=== PATIENT | female | born 1995 | race African-American/Black ===

== ENCOUNTER 2016-11-09 11:30 | Inpatient (IN) | payer MEDICAID ==
[2016-11-09] MEDS ORDERED: OXYTOCIN 10 UNIT/ML VIAL ONE (11:44)
[2016-11-09] MEDS ORDERED: PROMETHAZINE HCL 25 MG TABLET PO PRN ×2 (12:20)
[2016-11-09] MEDS ORDERED: ZOLPIDEM TARTRATE 5 MG TABLET PO PRN ×2 (12:20)
[2016-11-09] MEDS ORDERED: ACETAMINOPHEN 650 MG SUPP.RECT PR PRN ×2 (12:20)
[2016-11-09] MEDS ORDERED: PSEUDOEPHEDRINE HCL 30 MG TABLET PO PRN ×2 (12:20)
[2016-11-09] MEDS ORDERED: MEASLES,MUMPS&RUBELLA VACC/PF 0.5 ML VIAL SUBCUT PRN ×2 (12:20)
[2016-11-09] MEDS ORDERED: ACETAMINOPHEN WITH CODEINE #3 TABLET PO PRN ×4 (12:20)
[2016-11-09] MEDS ORDERED: PROMETHAZINE HCL INJ 25 MG/1 ML VIAL IV PRN ×2 (12:20)
[2016-11-09] MEDS ORDERED: DIPHENHYDRAMINE HCL 25 MG CAPSULE PO PRN ×2 (12:20)
[2016-11-09] MEDS ORDERED: DIPH/PERTUSS(ACELL)/TETANUS VAC/PF 0.5 ML SYR (>=10YO) IM PRN ×2 (12:20)
[2016-11-09] MEDS ORDERED: OXYTOCIN/NORMAL SALINE 20 UNIT/1,000 ML RTUINJ IV PRN (12:20)
[2016-11-09] MEDS ORDERED: BENZOCAINE/MENTHOL AEROSOL SPRAY 56 ML TOP PRN ×2 (12:20)
[2016-11-09] MEDS ORDERED: PROMETHAZINE HCL 25 MG SUPP.RECT PR PRN ×2 (12:20)
[2016-11-09] MEDS ORDERED: MAGNESIUM HYDROXIDE SUSP 30 ML UDCUP PO PRN ×2 (12:20)
[2016-11-09] MEDS ORDERED: DIBUCAINE 1% OINTMENT 28 GM TP PRN ×2 (12:20)
[2016-11-09] MEDS ORDERED: OXYTOCIN/NORMAL SALINE 1,000 ML IV PRN (12:20)
[2016-11-09] MEDS ORDERED: NA PHOS,M-B/NA PHOS,DI-BA (ADULT) 133 ML ENEMA PR PRN ×2 (12:20)
[2016-11-09] MEDS ORDERED: GLYCERIN/WITCH HAZEL LEAF 1 EACH MED..PAD TP PRN ×2 (12:20)
--- NOTE | 2016-11-09 13:11 | Admission Physical ---
Datetime Report Generated by CPN: 11/09/2016 13:11 CURRENT ADMISSION Chief Complaint: Other Chief Complaint Other: Delivered vaginally at home at 1019 this am Indication for Induction: Not Applicable Admit Impression- Other: S/P at home this am, placenta undelivered Admit Plan: Admit to Unit ALLERGIES Medication Allergies: No Medication Allergies: No Known Allergies (05/24/2013) Latex: No Latex Allergies OBSTETRICAL HISTORY EDC: 10/29/2016 00:00 : 2 Para: 2 Gestational Diabetes: No Rh Sensitization: No Incompetent Cervix: No LASHELL: No Infertility: No ART Treatment: No Uterine Anomaly: No IUGR: No Hx Previous C/S: No Macrosomia: No Hx Loss/Stillborn: No PIH: No Hx : No Placenta Previa/Abruption: No Depression/PP Depression: No PTL/PROM: No Post Hemorrhage: No Obstetrical History Comments: G1 G2 current SEE RECORDS Alcohol: No Marijuana : No Cocaine: No Other Illicit Drugs: Yes Cigarettes: Current Everyday Smoker. 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 Surgery: No Heart Disease: No Hosp/Surgery: No Autoimmune Disorder: No Anesthetic Complications: No Kidney Disease: No Abnormal Pap Smear: No Neuro/Epilepsy: No Psychiatric Disorders: Yes Other Medical Diseases: No Hepatitis/Liver Disease: No Significant Family History: No Varicosities/Phlebitis: No Trauma/Violence : No Thyroid Dysfunction: No Medical History Comments: Subutex INFECTIOUS HISTORY Gonorrhea: No Genital Herpes: No Chlamydia: No Tuberculosis: No Syphilis: No Hepatitis: No HIV/AIDS Exposure: No Rash or Viral Illness: No HPV: No PHYSICAL EXAM General: Normal HEENT: Normal Neurologic: Normal Thyroid: Deferred Heart: Normal Lungs: Normal Breast: Deferred Back: Normal Abdomen: Normal Genitourinary Exam: Normal Extremities: Normal DTRs: Normal Physical Exam Comments: S/P this am Vital Signs: Reviewed; Within Normal Limits FETUS A EGA: 41.4 Admit Comment: anni 41w 4d 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
[2016-11-09 13:26] LABS: PROTHROMBIN TIME 12.5 SEC (11.4-15.4)
--- NOTE | 2016-11-09 13:54 | Delivery Summary ---
Del Sum A-C Datetime Report Generated by CPN: 11/09/2016 13:54 DELIVERY PERSONNEL DELIVERY PERSONNEL: [id number] MATERNAL INFORMATION Other Maternal Complications: Delivered at home Provider Comments: Patient brought in by [facility] after she delivered a viable baby at home at 1019. EMS reportedly arrived after delivery of baby. Cord extending from vagina with a cord clamp attached. With gentle traction and patient pushing, placenta, membranes and cord delivered, Brewer presentation. FF at U-3 with fundal massage. Perineum inspected-intact. Placenta to lab. Patient stable. LABOR SUMMARY EDC: 10/29/2016 00:00 LABOR INFORMATION Group B Beta Strep: Negative STAGES OF LABOR Stage 3 hr: 1 Stage 3 min: 22 VAGINAL DELIVERY Episiotomy: None Laceration Extension: N/A Laceration Type: None Laceration Repair: Not Applicable BABY A INFORMATION Infant Delivery Date/Time: 11/09/2016 10:19 Method of Delivery: Vaginal Born in Route : Yes : N/A Forceps: N/A Vacuum Extraction: N/A Shoulder Dystocia : No PLACENTA INFORMATION BABY A Placenta Delivery Time : 11/09/2016 11:41 Placenta Method of Delivery: Expressed Placenta Status: Delivered SCORES BABY A Heart Rate 1 min: >100 bpm Resp Effort 1 min: Slow, Irregular Reflex Irritability 1 min: Cough or Sneeze or Pulls Away Muscle Tone 1 min: Active Motion Color 1 min: Body [place], Extremities Blue Resuscitation Effort 1 min: N/A SCORE 1 MIN: 8 Heart Rate 5 min: >100 bpm Resp Effort 5 min: Good Cry Reflex Irritability 5 min: Cough or Sneeze or Pulls Away Muscle Tone 5 min: Active Motion Color 5 min: Body [place], Extremities Blue Resuscitation Effort 5 min: N/A SCORE 5 MIN: 9 INFANT INFORMATION BABY A Outcome : Liveborn Condition : Stable Infant Sex: Female IDENTIFICATION BABY A Verification Date/Time: 11/09/2016 12:13 ID Band Number: [id number] Mother's Name Verified: Yes RN Verifying Infant: Isabella Mendosa RNC/C Balko RN CORD INFORMATION BABY A No. Cord Vessels: 3 SIGNATURES Assignment: Wendy Willams MD Signature: with User ID: [email or web address] : with User ID: [email or web address] : I personally evaluated and examined the patient in conjunction with the MLP and agree with the assessment, treatment plan and disposition.
[2016-11-09 13:57] LABS: APPEARANCE,URINE CLEAR; BILIRUBIN,URINE NEGATIVE (NEGATIVE); GLUCOSE, URINE NEGATIVE (NEGATIVE); KETONES,URINE NEGATIVE (NEGATIVE); LEUKOCYTE ESTERASE,URINE NEGATIVE (NEGATIVE); NITRITE,URINE NEGATIVE (NEGATIVE); PROTEIN,URINE 30 mg/dL (NEGATIVE); URINE SPECIFIC GRAVITY 1.018; UROBILINOGEN,URINE NEGATIVE mg/dL (<2.0)
[2016-11-09] MEDS ORDERED: IBUPROFEN 800 MG TABLET PO SCH (14:00)
[2016-11-09] MEDS: IBUPROFEN 800 MG TABLET PO SCH ×2 (14:09→21:01)
[2016-11-09 14:16] LABS: URINE BARBITURATES SCREEN NEGATIVE; URINE METHADONE SCREEN NEGATIVE; URINE OPIATES LOW NEGATIVE; URINE PHENCYCLIDINE SCREEN NEGATIVE
[2016-11-09] MEDS ORDERED: FERROUS SULFATE 325 MG TABLET PO SCH (18:00)
[2016-11-09] MEDS ORDERED: DOCUSATE SODIUM 100 MG CAPSULE PO SCH (18:00)
[2016-11-09] MEDS: DOCUSATE SODIUM 100 MG CAPSULE PO SCH (18:13)
[2016-11-09] MEDS: FERROUS SULFATE 325 MG TABLET PO SCH (18:14)
[2016-11-09] MEDS: BUPRENORPHINE 8MG TAB PO SCH (20:57)
[2016-11-09] MEDS: FAMOTIDINE 20 MG TABLET PO SCH (21:00)
[2016-11-09] MEDS ORDERED: FAMOTIDINE 20 MG TABLET PO SCH (22:00)
[2016-11-10] MEDS: BUPRENORPHINE 8MG TAB PO SCH ×3 (05:13→21:57)
[2016-11-10] MEDS: IBUPROFEN 800 MG TABLET PO SCH ×3 (05:14→21:57)
[2016-11-10 07:09] LABS: HEMATOCRIT 32.2 % (36.0-47.0); HEMOGLOBIN 10.8 g/dL (12.0-15.5); HGB HCT DIFFERENCE 0.2; MEAN CORPUSCULAR HEMOGLOBIN 30.2 pg (27.0-33.4); MEAN CORPUSCULAR HGB CONC 33.5 g/dL (32.0-36.0); MEAN CORPUSCULAR VOLUME 90 fl (80-97); RED BLOOD COUNT 3.56 10^6/uL (3.72-5.28); RED CELL DISTRIBUTION WIDTH 12.5 % (11.5-14.0)
[2016-11-10] MEDS ORDERED: PRENATAL VITAMIN W-O CA NO5/FE FUMARATE/FA CAPSULE PO SCH (10:00)
[2016-11-10] MEDS ORDERED: SENNOSIDES/DOCUSATE 8.6-50 MG 1 EACH TABLET PO SCH (10:00)
[2016-11-10] MEDS: DOCUSATE SODIUM 100 MG CAPSULE PO SCH ×2 (10:18→17:25)
[2016-11-10] MEDS: FAMOTIDINE 20 MG TABLET PO SCH ×2 (10:18→21:57)
[2016-11-10] MEDS: PRENATAL VITAMIN W-O CA NO5/FE FUMARATE/FA CAPSULE PO SCH (10:18)
[2016-11-10] MEDS: SENNOSIDES/DOCUSATE 8.6-50 MG 1 EACH TABLET PO SCH (10:19)
[2016-11-10] MEDS: FERROUS SULFATE 325 MG TABLET PO SCH ×2 (10:20→17:25)
--- NOTE | 2016-11-10 11:13 | PDOC PROGRESS REPORT ---
Subjective-OB Subjective: Post Delivery Day: 21 year old. Denies any needs at this time. Taking Subutex 8mg tid. Physical Exam (OB) Vital Signs: Temp Pulse Resp BP Pulse Ox 97.7 F 62 18 117/61 100 11/10/16 07:35 11/10/16 07:35 11/10/16 07:35 11/10/16 07:35 11/10/16 07:35 Intake & Output 11/09/16 11/10/16 11/11/16 06:59 06:59 06:59 Intake Total 120 Balance 120 Weight 85.2 kg - PIH/Pre-Eclampsia Clonus: Negative Headache: Absent Epigastric Pain: No Visual Changes: No - Lochia Lochia Amount: Small 10-25 ml Lochia Color: Rubra/Red - Abdomen Description: Soft, Round Hernia Present: No Bowel Sounds: Normoactive Flatus Presence: Present Stool: No Fundal Description: Firm, Midline Fundal Height: u/u - u/2 Objective-Diagnostic Laboratory: 11/10/16 06:37 11/09/16 11/09/16 11/10/16 12:54 13:05 06:37 WBC 12.0 H RBC 3.56 L Hgb 10.8 L Hct 32.2 L MCV 90 MCH 30.2 MCHC 33.5 RDW 12.5 Plt Count 143 L Urine Color RED Urine Appearance CLEAR Urine pH 7.0 Ur Specific [place] 1.018 Urine Protein 30 H Urine Glucose (UA) NEGATIVE Urine Ketones NEGATIVE Urine Blood LARGE H Urine Nitrite NEGATIVE Ur Leukocyte Esterase NEGATIVE Blood Type O POSITIVE Antibody Screen NEGATIVE
[2016-11-11] MEDS: IBUPROFEN 800 MG TABLET PO SCH (05:28)
[2016-11-11] MEDS: BUPRENORPHINE 8MG TAB PO SCH (05:28)
[2016-11-11 08:05] VITALS: BP 107/64
--- NOTE | 2016-11-11 09:07 | PDOC DISCHARGE SUMMARY ---
General - Admit/Disc Date/PCP Admission Date/Primary Care Provider: 11/09/16 11:30 NO LOCALMD Discharge Date: 11/11/16 - Discharge Diagnosis (1) Insufficient antepartum care Is this a current diagnosis for this admission?: Yes (2) Late onset prenantal care Is this a current diagnosis for this admission?: Yes (3) Opiod addiction Is this a current diagnosis for this admission?: Yes (4) Is this a current diagnosis for this admission?: Yes (5) Delivery normal Is this a current diagnosis for this admission?: Yes - Additional Information Home Medications: Pnv with Ca,No.72/Iron/FA [ Plus Tablet] 1 tab PO DAILY 05/24/13 History of Present Illness History of Present Illness: OMID MARK is a 21 year old female Physical Exam - Physical Exam Vital Signs: Temp Pulse Resp BP Pulse Ox 97.7 F 74 16 107/64 98 11/11/16 08:53 11/11/16 08:53 11/11/16 08:53 11/11/16 07:57 11/11/16 08:53 Intake & Output 11/10/16 11/11/16 11/12/16 06:59 06:59 06:59 Intake Total 120 1530 Balance 120 1530 Weight 85.2 kg General appearance: PRESENT: no acute distress, cooperative - Obstetrical Exam Fundal Height: u/u - u/2 Tender: No Result Laboratory Results: 11/10/16 06:37 Plan Discharge Plan: home with check in 4 wk with [facility]. Time Spent: Less than 30 Minutes
[2016-11-11] MEDS: DOCUSATE SODIUM 100 MG CAPSULE PO SCH (10:27)
[2016-11-11] MEDS: FAMOTIDINE 20 MG TABLET PO SCH (10:27)
[2016-11-11] MEDS: FERROUS SULFATE 325 MG TABLET PO SCH (10:27)
[2016-11-11] MEDS: SENNOSIDES/DOCUSATE 8.6-50 MG 1 EACH TABLET PO SCH (10:28)
[2016-11-11] MEDS: PRENATAL VITAMIN W-O CA NO5/FE FUMARATE/FA CAPSULE PO SCH (10:30)
== END 2016-11-11 13:07 | disposition home or self-care (01) | DRG 769 ==
LOC: EEVIPCON 11:30 → LR 11:30 → 2S 13:10 → 2N 20:08
PROVIDERS: ADMIT Obstetrics & Gynecology; ATTEND Obstetrics & Gynecology
PROC: 10D17ZZ Extraction of Products of Conception, Retained, Via Natural or Artificial Opening (ICD-10-PCS; principal; 2016-11-09)
DX: O73.0 Retained placenta without hemorrhage (principal); O99.324 Drug use complicating childbirth; O99.334 Smoking (tobacco) complicating childbirth; F17.210 Nicotine dependence, cigarettes, uncomplicated; Z3A.41 41 weeks gestation of pregnancy
CPT/HCPCS: 36415; 80307; 81005; 85027; 85610; 86592; 86850; 86900; 86901; 88307; J2590; J3490

== ENCOUNTER 2018-06-26 20:33 | Emergency (ER) | payer MEDICAID ==
--- NOTE | 2018-06-27 00:13 | ER Document Report ---
HPI - HPI Time Seen by Provider: 06/26/18 23:55 Pain Level: 1 Notes: Patient is a 22-year-old female presents to the emergency department today with a chief complaint of right ear pain for 2 days. Patient has had nasal congestion and runny nose. Denies fever or sore throat. She reports that she is eating and drinking normally. States that the ear pain feels like there is something "Stuck in it." Nothing makes the pain worse or better. Denies nausea vomiting or diarrhea. Denies cough. - REPRODUCTIVE Reproductive: DENIES: : Past Medical History - General Information source: Patient - Social History Smoking Status: Never Smoker Cigarette use (# per day): No Chew tobacco use (# tins/day): No Frequency of alcohol use: None Drug Abuse: None Lives with: Family Family History: None Pulmonary Medical History: Denies: Hx Asthma - seasonal allergies Past Surgical History: Reports: Hx Abdominal Surgery - umbilical hernia, Hx Orthopedic Surgery - 7, Hx Umbilical Hernia - Immunizations Immunizations up to date: Yes Hx Diphtheria, Pertussis, Tetanus Vaccination: No Vertical Provider Document - CONSTITUTIONAL Agree With Documented VS: Yes Exam Limitations: No Limitations General Appearance: WD/WN, No Apparent Distress - INFECTION CONTROL TRAVEL OUTSIDE OF THE [place] IN LAST 30 DAYS: No - HEENT HEENT: Atraumatic, Normocephalic, PERRLA, Pharyngeal Erythema, Tympanic Membrane Red - Left ear exam normal. Right ear: mastoid normal, TM red, no drainage. - NECK Neck: Normal Inspection - RESPIRATORY Respiratory: Breath Sounds Normal, No Respiratory Distress - CARDIOVASCULAR Cardiovascular: Regular Rate, Regular Rhythm - GI/ABDOMEN Gastrointestinal: Abdomen Soft, Abdomen Non-Tender - NEURO Level of Consciousness: Awake, Alert, Appropriate - DERM Integumentary: Warm, Dry Course - Vital Signs Vital signs: Temp Pulse Resp BP Pulse Ox 98.2 F 85 16 142/76 H 99 06/26/18 21:01 06/26/18 21:01 06/26/18 21:01 06/26/18 21:01 06/26/18 21:01 Discharge - Discharge Clinical Impression: Otitis media Qualifiers: Otitis media type: suppurative Chronicity: acute Laterality: right Recurrence: not specified as recurrent Spontaneous tympanic membrane rupture: without spontaneous rupture Qualified Code(s): H66.001 - Acute suppurative otitis media without spontaneous rupture of ear drum, right ear Condition: Stable Disposition: HOME, SELF-CARE Additional Instructions: You have been diagnosed with an ear infection, which is called otitis media on the right side. You are being prescribed Flonase for your nasal congestion as well as amoxicillin which is an antibiotic please take your antibiotic until it is completely finished. Please return to the emergency department if your ear pain is getting worse, you develop a high fever, severe headache, stiff neck, confusion, dizziness or any other concerning signs or symptoms. Otitis Media You have a middle ear infection (otitis media). This is usually a complication of a cold or sore throat. The middle ear cavity becomes filled with infection. Pressure and stretching of the ear drum cause pain. Antibiotics are required. A 7 day course is usually prescribed. A decongestant may be recommended if you have a "runny nose." You may need anesthetic drops or other pain medication. A follow-up exam may be recommended to make sure the infection has completely cleared. If the ear begins to drain, it means the ear drum has ruptured. This will usually heal spontaneously. However, it means you should keep the ear dry until re-examined by a doctor. Call the physician or return for examination at once if there is severe headache, stiff neck, confusion, increasing fever, or dizziness. You should improve significantly within two days. If you're not better, call the doctor. Prescriptions: Amoxicillin 2 tab PO TID 7 Days #42 tab Fluticasone Propionate [Flonase Nasal Rosenberg 50 Mcg/Rosenberg 16 gm] 2 sprays NASL Q12 #1 inhaler Referrals: LOCALMD,NO [NO LOCAL MD] - Follow up as needed
[2018-06-27 00:32] VITALS: BP 133/64
== END 2018-06-27 00:32 | disposition home or self-care (01) ==
LOC: ER 20:33
DX: H66.001 Acute suppurative otitis media without spontaneous rupture of ear drum, right ear (principal); H92.01 Otalgia, right ear; R09.89 Other specified symptoms and signs involving the circulatory and respiratory systems
CPT/HCPCS: 99282

== ENCOUNTER 2019-03-02 07:35 | Emergency (ER) | payer MEDICAID ==
[2019-03-02 09:31] LABS: A TYPE INFLUENZA AG NEGATIVE (NEGATIVE)
[2019-03-02 09:32] LABS: B INFLUENZA AG NEGATIVE (NEGATIVE)
--- NOTE | 2019-03-02 09:38 | ER Document Report ---
HPI - HPI Patient complains to provider of: cold symptoms Time Seen by Provider: 03/02/19 09:04 Onset: Last week Onset/Duration: Persistent Quality of pain: Achy Pain Level: 2 Context: 23-year-old female presents emergency department with complaints of flulike symptoms. Reports her roommate was diagnosed with flu symptoms. She reports she has been feeling this way since February 25. Denies fever vomiting diarrhea. Reports she feels achy. Reports she has had a cough. Has not received a flu vaccine. Associated Symptoms: Nonproductive cough Exacerbated by: Denies Relieved by: Denies Similar symptoms previously: No Recently seen / treated by doctor: No - EENT EENT: REPORTS: Sore Throat - REPRODUCTIVE Reproductive: DENIES: : Past Medical History - General Information source: Patient - Social History Smoking Status: Current Every Day Smoker Chew tobacco use (# tins/day): No Frequency of alcohol use: None Drug Abuse: None Occupation: [employer] Lives with: Family Family History: None Patient has suicidal ideation: No Patient has homicidal ideation: No - Past Medical History Cardiac Medical History: Reports: Hx Hypertension Pulmonary Medical History: Denies: Hx Asthma - seasonal allergies Renal/ Medical History: Denies: Hx Peritoneal Dialysis Past Surgical History: Reports: Hx Abdominal Surgery - umbilical hernia, Hx Orthopedic Surgery - 7, Hx Umbilical Hernia - Immunizations Immunizations up to date: Yes Hx Diphtheria, Pertussis, Tetanus Vaccination: No Vertical Provider Document - CONSTITUTIONAL Agree With Documented VS: Yes Exam Limitations: No Limitations General Appearance: WD/WN, No Apparent Distress - Nontoxic looking - INFECTION CONTROL TRAVEL OUTSIDE OF THE [place] IN LAST 30 DAYS: No - HEENT HEENT: Atraumatic, Normal ENT Exam, Normocephalic. negative: Conjuctival Injection, Pharyngeal Erythema, Tympanic Membrane Red - NECK Neck: Normal Inspection, Supple. negative: Lymphadenopathy-Left, Lymphadenopathy-Right - RESPIRATORY Respiratory: Breath Sounds Normal, No Respiratory Distress - Respiratory rate even unlabored no cough noted during entire interview and assessment - CARDIOVASCULAR Cardiovascular: Regular Rate, Regular Rhythm - GI/ABDOMEN Gastrointestinal: Abdomen Soft, Abdomen Non-Tender - MUSCULOSKELETAL/EXTREMETIES Musculoskeletal/Extremeties: MAEW, FROM - NEURO Level of Consciousness: Awake, Alert, Appropriate Motor/Sensory: No Motor Deficit - DERM Integumentary: Warm, Dry, No Rash Course - Re-evaluation Re-evalutation: 12/30/19 11:36 23-year-old female presents with cold symptoms achiness since February 25. Reports her roommate was diagnosed with the flu and she wants to make sure she does have the flu. She was instructed on negative flu test. Instructed take Tylenol Motrin for aches and pains good handwashing. She was also encouraged to get the flu vaccine and also have her children receive the flu vaccine. She verbalized understanding to all instructions - Vital Signs Vital signs: Temp Pulse Resp BP Pulse Ox 99.4 F 82 16 128/65 H 98 03/02/19 07:48 03/02/19 07:48 03/02/19 07:48 03/02/19 07:48 03/02/19 07:48 Discharge - Discharge Clinical Impression: cold symptoms Condition: Stable Disposition: HOME, SELF-CARE Additional Instructions: *You have been evaluated for cold symptoms today Your flu test was negative *Increase fluid intake as discussed *Monitor your temperature, take Tylenol as indicated *Follow up with a primary care provider in 1 week for recheck *Return to ED for worsening condition, changes, needs Forms: Elevated Blood Pressure, Return to Work Referrals: SULEIMAN HURLEY, [facility]IEF [employer] [employer] [facility] [Primary Care Provider] - Follow up as needed
[2019-03-02 09:55] VITALS: BP 124/74
== END 2019-03-02 09:55 | disposition home or self-care (01) ==
LOC: ER 07:35 → EEVIPCON 07:35 → ER 09:55
DX: J02.9 Acute pharyngitis, unspecified (principal); R05 Cough; F17.200 Nicotine dependence, unspecified, uncomplicated; I10 Essential (primary) hypertension
CPT/HCPCS: 87804; 99283

== ENCOUNTER 2019-05-26 03:38 | Emergency (ER) | payer MEDICAID ==
[2019-05-26 03:53] VITALS: BP 141/80
[2019-05-26 04:21] LABS: RBCS (WET MOUNT) RARE RBCS SEEN; T.VAGINALIS (WET MOUNT) NO TRICHOMONAS SEEN; WBCS (WET MOUNT) 2+ WBCS SEEN; YEAST (WET MOUNT) NO YEAST SEEN
[2019-05-26 04:22] LABS: BACTERIA (WET MOUNT) 4+ BACTERIA SEEN; EPITHELIALS (WET MOUNT) 3+ EPITHELIALS SEEN
[2019-05-26] MEDS ORDERED: LIDOCAINE 1% INJ-PF (10 MG/ML) 30 ML SDV IM ONE (04:53)
[2019-05-26] MEDS ORDERED: METRONIDAZOLE 500 MG TABLET PO ONE (04:53)
[2019-05-26] MEDS ORDERED: AZITHROMYCIN 250 MG TABLET PO ONE (04:53)
[2019-05-26] MEDS ORDERED: CEFTRIAXONE INJ 250 MG VIAL IM ONE (04:53)
--- NOTE | 2019-05-26 04:54 | ER Document Report ---
HPI - HPI Time Seen by Provider: 05/26/19 04:02 Pain Level: Denies Notes: Patient is a 23-year-old female presenting to the emergency department chief complaint of vaginal discharge. Patient reports over the last few days she has had a thick white vaginal discharge with some irritation. She denies any fever, abdominal pain or vaginal pain. She reports she has had a similar pain in the past and that time it was trichomonas. She denies any new sexual partners, st ates she is and in a monogamous relationship. - REPRODUCTIVE LMP: 04/08/19 Reproductive: DENIES: : Past Medical History - General Information source: Patient - Social History Smoking Status: Current Every Day Smoker Chew tobacco use (# tins/day): No Frequency of alcohol use: None Drug Abuse: None Family History: None Patient has suicidal ideation: No Patient has homicidal ideation: No - Past Medical History Cardiac Medical History: Reports: Hx Hypertension Pulmonary Medical History: Denies: Hx Asthma - seasonal allergies Renal/ Medical History: Denies: Hx Peritoneal Dialysis Past Surgical History: Reports: Hx Abdominal Surgery - umbilical hernia, Hx Orthopedic Surgery - 7, Hx Umbilical Hernia - Immunizations Immunizations up to date: Yes Hx Diphtheria, Pertussis, Tetanus Vaccination: No Vertical Provider Document - CONSTITUTIONAL Notes: PHYSICAL EXAMINATION: GENERAL: Well-appearing, well-nourished and in no acute distress. HEAD: Atraumatic, normocephalic. EYES: Pupils equal round and reactive to light, extraocular movements intact, conjunctiva are normal. ENT: Nares patent, oropharynx clear without exudates. Moist mucous membranes. NECK: Normal range of motion, supple without lymphadenopathy LUNGS: Breath sounds clear to auscultation bilaterally and equal. No wheezes rales or rhonchi. HEART: Regular rate and rhythm without murmurs ABDOMEN: Soft, nontender, nondistended abdomen. No guarding, no rebound. No masses appreciated. Female : deferred Musculoskeletal: Normal range of motion, no pitting or edema. No cyanosis. NEUROLOGICAL: Cranial nerves grossly intact. Normal speech, normal gait. Normal sensory, motor exams PSYCH: Normal mood, normal affect. SKIN: Warm, Dry, normal turgor, no rashes or lesions noted. - INFECTION CONTROL TRAVEL OUTSIDE OF THE [place] IN LAST 30 DAYS: No Course - Re-evaluation Re-evalutation: Laboratory 05/26/19 05/26/19 04:10 04:10 Epi Cells (Wet Prep) 3+ EPITHELIALS SEEN Bacteria (Wet Prep) 4+ BACTERIA SEEN Trichomonas (Wet Prep) NO TRICHOMONAS SEEN Vaginal WBC 2+ WBCS SEEN Vaginal RBC RARE RBCS SEEN Vaginal Yeast NO YEAST SEEN Chlamydia DNA (PCR) NOT DETECTED N.gonorrhoeae DNA (PCR) NOT DETECTED - Vital Signs Vital signs: Temp Pulse Resp BP Pulse Ox 98.7 F 86 18 141/80 H 100 05/26/19 03:52 05/26/19 03:52 05/26/19 03:52 05/26/19 03:52 05/26/19 03:52 Discharge - Discharge Clinical Impression: Bacterial vaginosis Condition: Stable Disposition: HOME, SELF-CARE Additional Instructions: You have an overgrowth of natural vaginal bacteria, called bacterial vaginosis. You are being treated with an antibiotic called metronidazole. Do not drink al cohol while taking this medication. Complete all of the antibiotic even if your symptoms have resolved. Return for abdominal pain, vomiting, fever of greater than 101F, or any other symptoms that are worrisome to you. 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 Prescriptions: Fluconazole [Diflucan] 100 mg PO ONCE PRN #1 tablet PRN Reason: Metronidazole [Flagyl 500 mg Tablet] 500 mg PO BID #14 tablet Referrals: SULEIMAN HURLEY FNP-BC [Primary Care Provider] - Follow up as needed
[2019-05-26 05:52] LABS: CHLAM PCR NOT DETECTED (NOT DETECT)
== END 2019-05-26 05:14 | disposition home or self-care (01) ==
LOC: ER 03:38
DX: N76.0 Acute vaginitis (principal); B96.89 Other specified bacterial agents as the cause of diseases classified elsewhere; F17.200 Nicotine dependence, unspecified, uncomplicated; I10 Essential (primary) hypertension
CPT/HCPCS: 99283; 96372; 87210; 87491; 87591; Q0144; J3490 ×2; J0696